=== PATIENT | male | born 1965 | race Caucasian/White ===

== ENCOUNTER 2025-02-08 13:13 | Outpatient (AMB) | payer BC, SELFPAY ==
--- NOTE | 2025-02-08 13:26 | A.OFFPC_ITS ---
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 Accompanied by: Self / Same As Patient Allergies No Known Allergies Allergy (Verified 02/08/25 13:27) Medication List - Last Reconciled 02/08/25 by Amilcar Carlisle MD amlodipine 10 mg PO DAILY Tobacco use date assessed: 02/08/25 Dental Screening Dental Screen Date: 02/08/25 Did you have a dental visit in the last 12 months?: Yes HPI HPI Comments History of Present Illness Details History of Present Illness The patient is a 59 year old male presenting for evaluation of elevated blood pressure. Hypertension: The patient reports a history of high blood pressure for approximately five years. He was previously prescribed lisinopril 20 mg in late 2018 after a reading of 160s, but he stopped seeking medical care and taking the medication during the COVID-19 pandemic. His last blood pressure check was in 2019. Recently, he was unable to undergo a dental extraction for a cracked tooth due to a very high blood pressure reading at the dentist's office, which prompted the current visit. Obstructive Sleep Apnea: The patient has a history of sleep apnea, diagnosed via a sleep study in 2009 after his then-partner, a nurse, noted his significant snoring. A CPAP machine was recommended, but he disliked it and did not use it. Subsequently, he underwent tonsillectomy, uvuloplasty, and septoplasty for a deviated septum. He reports that these procedures resolved his snoring and he now sleeps well. Tobacco Use: The patient has a history of smoking for approximately 20 years, having started in college. He quit smoking cigarettes in 2018 but subsequently started using a low-potency nicotine vape, which he continues to use. He has never had a low- dose CT scan for lung cancer screening. Meniscus Tear: The patient reports a past history of a torn meniscus, which was diagnosed via an MRI. An orthopedic doctor advised against surgery, stating he could leave it as is if he could live with it. He notes that as a result, he walks a little bit funny. Surgical History: - Tonsillectomy - Uvuloplasty - Septoplasty Medications: - Lisinopril 20 mg: Previously prescribe d for hypertension, but patient has not taken it since 2019. Social History: - Tobacco Use: The patient smoked for ap proximately 20 years and quit in 2017. - Vaping: He currently uses a nicotine v ape with low potency. - Employment: He has worked for the [employer] for about four years, a job that involves significant walking. Family History: - The patient denies any family history of colon cancer. - His mother had multiple moles removed due to concern for cancer. Diagnostic Results: - Vitals: Blood pressure in office was 1 90/96 mmHg. Past Medical History - Hypertension, diagnosed circa 2018, wi history of non-adherence to lisinopril. - Obstructive sleep apnea, diagnosed in 2009, status post surgical correction with tonsillectomy, uvulectomy, and septoplasty. - Meniscus tear of the knee, managed non -surgically. - Cracked tooth requiring extraction. Health Maintenance - Vaccinations: Received the first shing les shot at an unspecified time and the second in 2023. - Colon Cancer Screening: The patient is due for screening and has opted for a Cologuard test. - Lung Cancer Screening: The patient mague ts criteria for screening due to his smoking history and will be referred for a low-dose CT scan. - Skin Cancer Screening: The patient has numerous nevi and a family history of mole removal; he was educated on the ABCDEs of melanoma for self-monitoring. [facility] Medical History (Updated 02/08/25 @ 13:40 by Amilcar Carlisle MD) Sleep apnea HTN (hypertension) Deviated septum Surgical History (Updated 02/08/25 @ 13:37 by Aracelis Machuca CMA) H/O sinus surgery History of tonsillectomy Family History Mother No problems noted. Father No problems noted. Social History Housing: House Patient Tobacco Use Status: Former Tobacco user e-Cigarette/Vaping Use: Never Used service: No Current occupational status: employed Cognitive needs: No Hearing needs: No Vision needs: No Questionnaire PHQ-9 Over the last 2 weeks, how often have you been bothered by any of the following problems? 1. Little interest or pleasure in doing things: not at all 2. Feeling down, depressed, or hopeless: not at all 3. Trouble falling or staying asleep, or sleeping too much: not at all 4. Feeling tired or having little energy: not at all 5. Poor appetite or overeating: not at all 6. Feeling bad about yourself - or that you are a failure or have let yourself or your family down: not at all 7. Trouble concentrating on things, such as reading the newspaper or watching television: not at all 8. Moving or speaking so slowly that other people could have noticed. Or the opposite - being so fidgety or restless that you have been moving around a lot more than usual: not at all 9. Thoughts that you would be better off or of hurting yourself in some way: not at all Total score: 0 Depression Screening Interpretation: Negative Depression Screening Done: Yes Source: Developed by Drs. Seth Rm, Brie Mccall, Erick Singh and colleagues, with an educational alex from [employer]. Thrive Questionnaire Date Thrive assessed: 02/08/25 I am a: Patient What is your living situation today?: I have a steady place to live Within the past 12 months, did the food you bought not last and you didn't have the money to get more?: Never true Within the past 12 months, did you worry whether your food would run out before you got money to buy more?: Never true Do you have trouble paying for medicines?: No Do you have trouble getting transportation to medical appointments?: No Do you have trouble paying your heating and electricity bill?: No Do you have trouble taking care of your child, family member or friend?: No Are you currently unemployed and looking for a job?: No Are you interested in more education?: No Please select the resources that you would like help with: None Currently or been in a relationship where the following occur: No concerns reported THRIVE Score: 0 AUDIT C Alcohol Use Questionnaire (AUDIT-C) 1. How often do you have a drink containing alcohol?: 4 or more times a week 2. How many drinks containing alcohol do you have on a typical day when you are drinking?: 5 or 6 3. How often do you have six or more drinks on one occasion?: Weekly Total Score: 9 TY-7 AMB Questionnaire TY-7 Feeling nervous, anxious, or on edge: 0 = Not at all Not being able to stop or control worryin = Not at all Worrying too much about different things: 0 = Not at all Trouble relaxin = Not at all Being so restless that it is hard to sit still: 0 = Not at all Becoming easily annoyed or irritable: 0 = Not at all Feeling afraid as if something awful might happen: 0 = Not at all Total TY-7 score (0-4 normal; 5-9 mild; 10-14 moderate; 15-21 severe): 0 Source: Developed by Drs. Seth Rm, Brie Mccall, Erick Singh and colleagues, with an educational alex from [employer]. Review of Systems Narrative Review of Systems - Constitutional: Denies feeling generally unwell. - Neurological/Sleep: Reports good sleep quality and resolution of snoring since his pharyngeal surgery. - Genitourinary/Gastrointestinal: Reports normal urination and bowel movements. - Extremities: Denies lower extremity swelling. - Musculoskeletal: Reports mild gait abnormality related to a prior knee injury. - Integumentary: Reports skin splits on his hands due to frequent handwashing at work. 10-point ROS reviewed and negative except as noted in HPI Physical exam (Primary Care) Vital Signs: Last Vital Signs Temp 98.5 F 02/08/25 13:29 Pulse 88 02/08/25 13:29 BP 190/96 H 02/08/25 13:29 Pulse Ox 96 02/08/25 13:29 Oxygen Delivery Method Room Air 02/08/25 13:29 Tobacco/Smoking Status: Tobacco use Status Tobacco use date assessed 02/08/25 02/08/25 13:34 Patient Tobacco Use Status Former Tobacco user 02/08/25 13:34 e-Cigarette/Vaping Use Never Used 02/08/25 13:34 PHQ-9: PHQ-9 Score PHQ-9: Total score 0 02/08/25 13:34 Depression Screening Interpretation: Negative Thrive Assessment: Date of Thrive Assessment Date Thrive assessed 02/08/25 02/08/25 13:34 Currently or been in a relationship where the following occur: No concerns reported Narrative Physical Exam General: Well-appearing, in no acute distress. Vital signs: Blood pressure 190/96. HEENT: Normocephalic, atraumatic. PERRLA, EOMI. Conjunctiva clear, sclera anicteric. Oropharynx clear, mucous membranes moist. TMs intact bilaterally. Neck: Supple, no lymphadenopathy, no thyromegaly, no JVD or carotid bruits. Cardiovascular: RRR, normal S1/S2, no murmurs, rubs, or gallops. Peripheral pulses 2+ and symmetric. No edema. Respiratory: Lungs clear to auscultation bilaterally, no wheezes, rales, or rhonchi. Normal effort. Abdomen: Soft, non-tender, non-distended. Normoactive bowel sounds. No hepatosplenomegaly, no masses. MSK: Full range of motion, no joint swelling or deformity. Normal gait. Reports history of meniscus tear in knee, no current swelling or deformity noted. Skin: Warm, dry, intact. No rashes, lesions, or pallor. Multiple birthmarks noted, no suspicious lesions observed. Neuro: Alert and oriented x3. Cranial nerves II-XII intact. Strength 5/5 throughout. Sensation intact. Reflexes 2+ symmetric. Normal coordination and gait. Psych: Appropriate mood and affect. Normal judgment and insight. Coding Level of Care Code New Pt Level 4 (09949) Add On Problem Visit Only Diagnoses HTN (hypertension) I10 History of tobacco use Z87.891 Assessment & Plan Assessment & Plan (1) HTN (hypertension): Code(s): I10 - Essential (primary) hypertension Category: Medical (2) History of tobacco use: Code(s): Z87.891 - Personal history of nicotine dependence Category: Social Hx Plan Consent The risks, benefits, and alternatives for management of hypertension were discussed, including initiation of amlodipine and its potential side effects such as ankle swelling and constipation. Options for colon cancer screening were reviewed, including an at-home stool test (Cologuard), which is repeated every 3 years if normal, and a colonoscopy, which is repeated every 10 years if normal. The patient understood the options and verbally consented to proceed with the Cologuard test. The recommendation for a low-dose CT scan for lung cancer screening was also discussed. The patient provided verbal consent for all discussed plans, including comprehensive lab work and an in-office EKG. Patient was informed and verbally consented to the use of an ambient scribe for clinic note documentation during this visit. Plan 1. Essential Hypertension - Will initiate amlodipine 10 mg once daily. - A three-month supply has been sent to the patient's pharmacy, [facility] on [facility]. - The patient was counseled on potential side effects, including ankle swelling and constipation. - The patient is instructed to monitor blood pressure at home twice daily (morning and evening) using an arm cuff and to maintain a log. - The patient was educated on the proper technique for measuring blood pressure. - An in-office EKG will be obtained today. - A comprehensive panel of bloodwork will be drawn today, including CBC, CMP, lipid panel, thyroid studies, B12, folate, vitamin D, A1c, and infectious disease screening (Hep B, Hep C, HIV, syphilis). - The patient will follow up in two weeks to review lab results and blood pressure trends. 2. Preventative Care: Colon Cancer Screening - The patient is at low risk for colon cancer as he has no family history. - After discussing the options of a colonoscopy versus a stool-based test, the patient has elected to proceed with Cologuard. - A referral for the Cologuard test has been placed, and the patient will receive the kit by mail. 3. Preventative Care: Lung Cancer Screening - The patient meets the criteria for lung cancer screening due to his age and extensive smoking history, having quit within the last 15 years. - A referral will be placed to pulmonology to arrange for a low-dose CT scan of the chest. Discussion Notes I had a detailed discussion with the patient regarding his severely elevated blood pressure of 190/96 mmHg. I explained the necessity of starting medication and recommended amlodipine 10mg. I explained that I chose this medication because it does not require kidney function labs before initiation, unlike lisinopril, which he had taken previously. Potential side effects like ankle swelling were reviewed. We also reviewed options for colon cancer screening, discussing the pros and cons of Cologuard versus a traditional colonoscopy, and he elected to proceed with Cologuard. I informed him that due to his smoking history, he meets the criteria for lung cancer screening with a low-dose CT scan, and a referral to pulmonology will be made. I educated him on the ABCDEs of melanoma for self-monitoring of his multiple nevi. The plan for comprehensive bloodwork and an EKG was outlined, and he agreed to all recommendations. A follow-up visit in two weeks was scheduled to review all results. Patient Instructions - Take one tablet of amlodipine 10 mg by mouth every morning for your blood pressure. - Check your blood pressure at home twice a day, once in the morning and once at night. - When you check your blood pressure, sit in a chair with your back supported, feet flat on the ground, and your arm resting at heart level. Relax for a few minutes before taking the reading. - Keep a written log of your blood pressure readings and bring it to your next appointment. - A kit for a stool test (Cologuard) will be mailed to your home. Please follow the instructions to collect the sample and mail it back. - We will refer you to a lung specialist to get a CT scan of your lungs for cancer screening. - You will have blood work and an EKG (a test that checks your heart's rhythm) done today in the office. You do not need to fast for the blood test. - Check the moles on your skin for any changes in asymmetry, border, color, diameter, or evolution over time (the ABCDEs). - Please make a follow-up appointment for two weeks from now to discuss your test results. Medical Decision Making The patient is a 59-year-old male who presents with severely elevated stage 2 hypertension (190/96 mmHg) and a history of medication non-adherence. The u rgency of treatment is heightened by his inability to receive a needed dental procedure due to his blood pressure. Given that baseline renal function is unknown, I have chosen to initiate amlodipine 10 mg, a calcium channel keturah, as its mechanism of action does not depend on the renin-angiotensin system and is safe to start without recent lab work. I will defer restarting an TADEO inhibitor like lisinopril until his comprehensive metabolic panel results, which will include kidney function, are available for review. In addition to managing his hypertension, I addressed several preventative health items. The patient meets USPSTF criteria for lung cancer screening with a low-dose CT scan due to his age (59) and smoking history (quit in 2018 after ~20 years); therefore, a pulmonology referral is indicated. He is also due for colorectal cancer screening; as he is low-risk, the option of Cologuard was presented, and he elected this over a colonoscopy. Comprehensive bloodwork and a baseline EKG were ordered to establish his overall health status and better assess his cardiovascular risk profile. Close follow-up in two weeks is crucial to assess his response to amlodipine, review all results, and make any necessary adjustments to his treatment plan. Total Time Statement 30 min Total time spent caring for the patient today includes pre-visit chart review, documentation, review of laboratory and diagnostic imaging results, medication reconciliation, medically necessary evaluation, counseling on diagnoses, care coordination, ordering appropriate tests and medications, review of tests performed by other providers, reporting test results to the patient, and communication with other healthcare providers. Orders: Orders Influenza [id number] Immunization Today Z23 - Encounter for immunization Syphilis Screen Today Z13.9 - Encounter for screening, unspecified UA CC w/rflx Micro + Cult Today Z13.9 - Encounter for screening, unspecified Vitamin B12 and Folate Today Z13.9 - Encounter for screening, unspecified Hemoglobin A1c Today Z13.9 - Encounter for screening, unspecified Hepatitis B Surface Antibody Today Z13.9 - Encounter for screening, unspecified Microalbumin, Random (w Creat) Today Z13.9 - Encounter for screening, unspecified Complete Blood Count Auto Diff Today Z13.9 - Encounter for screening, unspecified Hepatitis B Surface Antigen Today Z13.9 - Encounter for screening, unspecified Comprehensive Met. Panel Today Z13.9 - Encounter for screening, unspecified Hepatitis C Antibody Today Z13.9 - Encounter for screening, unspecified TSH reflex Free T4 Today Z13.9 - Encounter for screening, unspecified HIV Ab/Ag Today Z13.9 - Encounter for screening, unspecified Lipid Panel Today Z13.9 - Encounter for screening, unspecified Magnesium Today Z13.9 - Encounter for screening, unspecified Vitamin D 25-OH (D2 and D3) Today Z13.9 - Encounter for screening, unspecified AMB EKG-In Office Today Z13.6 - Encounter for screening for cardiovascular disorders Referrals Pulmonology Referral Z12.2 - Encounter for screening for malignant neoplasm of respiratory organs Cologuard Test Z12.11 - Encounter for screening for malignant neoplasm of colon, Z12.12 - Encounter for screening for malignant neoplasm of rectum Medications: New Fluarix [id number] (PF) (flu vac ts (6mos up)-PF) 0.5 mL IM ONCE 0.5 mL 0RF NS Z23 - Encounter for immunization amlodipine 10 mg PO DAILY 90 tabs 0RF
[2025-02-08 13:29] VITALS: BP 190/96; PULSE 88; TEMP 36.9; O2SAT 96
== END 2025-02-08 14:01 | disposition home or self-care (01) ==
PROVIDERS: PCP Student in an Organized Health Care Education/Training Program; Visit Provider Student in an Organized Health Care Education/Training Program
DX: I10 Essential (primary) hypertension (principal); Z87.891 Personal history of nicotine dependence

== ENCOUNTER 2025-02-08 13:13 | Outpatient (REF) | payer BC, SELFPAY ==
--- OUTSIDE RECORDS SUMMARY | 2025-02-08 15:21 | XMS_ITS ---
Author Name [facility] Organization Unknown Care Team Organization Name Specialty Phone Email Start Date End Da te [employer] 12/27/2022 0 10/06/2023
[2025-02-08 18:23] LABS: Appearance Urine Clear; Glucose Urine UA Negative (Negative); PH 6.0 (5.0-9.0); Specific Gravity - Urine 1.010 (1.005-1.025)
[2025-02-08 18:24] LABS: MANUAL DIFF FLAG NO
[2025-02-08 18:39] LABS: Hematocrit 41.6 % (42.0-52.0); Hemoglobin 14.0 g/dl (14.0-18.0); Imm Gran Abs Auto 0.04 X10*3/uL (0.00-0.03); Imm Gran Pct Auto 0.3 % (0.0-0.4); Lymphocytes Absolute Auto 2.3 X10*3/uL (1.2-4.9); Mean Corpuscular HGB Conc 33.7 g/dl (31.0-36.0); Mean Corpuscular Hemoglobin 29.5 pg (27.0-33.0); Mean Corpuscular Volume 87.6 fL (80.0-98.0); NRBC Abs Auto 0.000 X10*3/uL (0.0-0.012); NRBC Pct Auto 0.0 /100WBC (0.0-0.2); Platelet Count 271 X10*3/uL (160-400); Red Blood Count 4.75 X10*6/uL (4.60-5.80); White Blood Count 12.4 X10*3/uL (4.8-10.8)
[2025-02-08 18:56] LABS: Alanine Aminotransferase 18 U/L (0-40); Albumin Level 4.9 g/dL (3.5-5.0); Alkaline Phosphatase 90 U/L (39-117); Anion Gap 15 (12-20); Aspartate Amino Transferase 26 U/L (5-37); Blood Urea Nitrogen 12 mg/dL (9-16); Calcium 9.5 mg/dL (8.4-10.2); Carbon Dioxide 21 mmol/L (22-29); Chloride 107 mmol/L (96-108); Cholesterol 224 mg/dL (<200); Estimated Glomerular Filt Rate > 60; HDL Cholesterol 98 mg/dL (>40); Magnesium 2.1 mg/dL (1.6-2.6); Microalbum/Creatinine Ratio Ur 18.5 ug/mg cr (<30); Potassium 3.7 mmol/L (3.3-5.1); Sodium 139 mmol/L (135-145); Total Protein 7.8 g/dL (6.5-8.0); Triglycerides 83 mg/dL (<150)
[2025-02-08 19:23] LABS: Folate 10.2 ng/mL (> or = 4.0); Vitamin B12 249 pg/mL (200-900)
[2025-02-09 03:41] LABS: Syphilis Screen Nonreactive (Nonreactive)
[2025-02-09 04:12] LABS: HBS Num1 0.46 mIU/mL (0-7.99); HBsAGNum1 0.35 S/CO (0.00-0.99); HIV Num 1 0.08 S/CO (0.00-0.99); Hepatitis B Surface Antigen Negative (Negative); ~HepC Num1 0.14 S/CO (0.00-0.79); ~Hepatitis B Surface Antibody NONREACTIVE (Nonreactive); ~Hepatitis C Antibody Nonreactive (Nonreactive)
[2025-02-09 05:20] LABS: Total Hemoglobin (HGBA1C) 2424.3776 umol/L
[2025-02-12 12:38] LABS: Vitamin D 25-OH, D2 <4 ng/mL; Vitamin D 25-OH, D3 16 ng/mL; Vitamin D 25-OH, Total 16 ng/mL (30-100)
== END 2025-02-08 13:14 | disposition home or self-care (01) ==
LOC: HO.HKASLDS 13:13
PROVIDERS: PCP Student in an Organized Health Care Education/Training Program; Visit Provider Student in an Organized Health Care Education/Training Program
DX: I10 Essential (primary) hypertension (principal); Z87.891 Personal history of nicotine dependence; Z13.1 Encounter for screening for diabetes mellitus
CPT/HCPCS: 36415; 80053; 80061; 81003; 82043; 82306; 82570; 82607; 82746; 83036; 83735; 84443; 85025; 86706; 86780; 86803; 87340; 87389